=== PATIENT | female | born 1940 | race Hispanic/Latino ===

== ENCOUNTER 2020-09-07 11:00 | Outpatient (RCR) | payer MEDICARE | END 2020-09-15 | LOC: PT 11:00 | PROVIDERS: ATTEND Specialist | DX: M70.62 Trochanteric bursitis, left hip (principal) ==

== ENCOUNTER → 2021-07-09 | Outpatient (CLI) | payer MEDICARE ==
[2021-07-05 12:27] LABS: BASOPHILS # (AUTO) 0.1 (0.0-0.1); BASOPHILS % 1.3 % (0.0-1.0); EOSINOPHILS # (AUTO) 0.3 (0.0-0.4); EOSINOPHILS % 4.4 % (0.0-6.0); HEMATOCRIT 42.1 % (34.2-44.1); HEMOGLOBIN 13.2 g/dL (12.0-16.0); LYMPHOCYTES # (AUTO) 2.7 (1.0-3.2); LYMPHOCYTES % 44.5 % (18.0-39.1); MEAN CORPUSCULAR HGB CONC 31.4 g/dL (31-35); MEAN CORPUSCULAR VOLUME 98.8 fL (81-99); MONOCYTES # (AUTO) 0.6 (0.2-0.8); MONOCYTES % 9.4 % (4.4-11.3); NEUTROPHILS # (AUTO) 2.5 (2.1-6.9); NEUTROPHILS % 40.2 % (38.7-80.0); PLATELET COUNT 256 x10e3/uL (140-360); RED BLOOD COUNT 4.26 x10e6/uL (3.6-5.1); RED CELL DISTRIBUTION WIDTH 12.9 % (11.7-14.4)
[~2021-07-09] MED LIST: TYLENOL325 MG PO; VIT D PO; ZINC
== END | disposition home or self-care (01) ==
LOC: EDSTATUS 07:00 → OR 07:37 → LAB 07:37
PROVIDERS: ATTEND Specialist
DX: M16.12 Unilateral primary osteoarthritis, left hip (principal); Z53.8 Procedure and treatment not carried out for other reasons; U07.1 COVID-19; Z01.810 Encounter for preprocedural cardiovascular examination; Z01.812 Encounter for preprocedural laboratory examination; Z01.818 Encounter for other preprocedural examination
CPT/HCPCS: 36415; 71046; 85025; 93005; U0002

== ENCOUNTER → 2021-07-23 | Day surgery (SDC) | payer MEDICARE ==
[~2021-07-23] MED LIST changes: +BUPIVACAINE HCL 0.5% INJ 30 ML VIAL INJ ONE; +FAMOTIDINE20 MG PO; +IOPAMIDOL 200 MG/ML 20 ML VIAL IT ONE; +LIDOCAINE HCL 2% LOCAL INJ 5 ML SDV VIAL INJ ONE; +POVIDONE IODINE 0.05% 0.05 % ML PO ONE; +PROPOFOL IV EMULSION 10 MG/ML 20 ML VIAL ONE; +TRIAMCINOLONE ACET 40 MG/ML VIAL ONE; +ULTRAM50 MG PO
[2021-07-23 11:25] VITALS: BP 122/66
== END | disposition home or self-care (01) ==
LOC: OR 09:55
PROVIDERS: ATTEND Specialist
DX: M16.12 Unilateral primary osteoarthritis, left hip (principal); Z96.653 Presence of artificial knee joint, bilateral; K21.9 Gastro-esophageal reflux disease without esophagitis; F17.200 Nicotine dependence, unspecified, uncomplicated; Z88.6 Allergy status to analgesic agent; Z79.899 Other long term (current) drug therapy; Z86.16 Personal history of COVID-19
CPT/HCPCS: 20610; 77002; J2001; J2704; J3301; Q9967; 76000